=== PATIENT | male | born 1935 | race Caucasian/White ===

== ENCOUNTER → 2022-04-17 | Outpatient (REF) | payer MEDICARE | LOC: M SFHCDERM 17:27 | PROVIDERS: ATTEND Nurse Practitioner Family | DX: D22.61 Melanocytic nevi of right upper limb, including shoulder (principal) ==

== ENCOUNTER → 2022-04-30 | Outpatient (REF) | payer MEDICARE | LOC: M SFHCDERM 14:05 | PROVIDERS: ATTEND Nurse Practitioner Family | DX: L72.9 Follicular cyst of the skin and subcutaneous tissue, unspecified (principal) ==

== ENCOUNTER → 2022-05-23 | Outpatient (REF) | payer MEDICARE | LOC: M SFHCDERM 14:37 | PROVIDERS: ATTEND Dermatology | DX: D23.61 Other benign neoplasm of skin of right upper limb, including shoulder (principal) ==

== ENCOUNTER 2023-07-24 11:34 | Day surgery (SDC) | payer MEDICARE ==
[~2023-07-24] VITALS: Ht 177.8 cm; Wt 83.0 kg
[~2023-07-24 11:34] MED LIST: ACET1TAB55 PO; BENA1TAB24 PO; PRAV10TA3 PO; THERTAB52 PO; VITA100093 PO
[2023-07-24] MEDS: NS 1,000 ML IV ONE (12:26)
[2023-07-24] MEDS ORDERED: propofoL 200 MG/20 ML VIAL As Ordered ONE (12:58)
[2023-07-24] MEDS ORDERED: LIDOCAINE 2% 100MG/5ML SDV (FOR ANES.) As Ordered ONE (12:58)
[2023-07-24 13:56] VITALS: TEMP 97.5
[2023-07-24 14:37] VITALS: BP 127/61; O2SAT 96
== END 2023-07-24 15:05 | disposition home or self-care (01) ==
LOC: M OPP 11:34
PROVIDERS: ATTEND Internal Medicine Gastroenterology
DX: K64.0 First degree hemorrhoids (principal); K57.30 Diverticulosis of large intestine without perforation or abscess without bleeding; D12.2 Benign neoplasm of ascending colon; K63.5 Polyp of colon; D50.9 Iron deficiency anemia, unspecified; K44.9 Diaphragmatic hernia without obstruction or gangrene; K29.50 Unspecified chronic gastritis without bleeding; K31.A0 Gastric intestinal metaplasia, unspecified; I10 Essential (primary) hypertension; Z79.02 Long term (current) use of antithrombotics/antiplatelets; Z79.899 Other long term (current) drug therapy; Z85.46 Personal history of malignant neoplasm of prostate